=== PATIENT | male | born 1945 | race Caucasian/White ===

== ENCOUNTER 2024-08-25 06:15 | Day surgery (SDC) | payer OTHER, MEDICARE, SELFPAY ==
[2024-08-11 14:11] VITALS: BMI 28.2
--- NOTE | 2024-08-11 15:16 | PTCARENOTE ---
Abnormal EKG on 08/11/24. Dr. Velez aware. No intervention required.
[2024-08-25] VITALS (8 sets, daily range): BP systolic 122–147; BP diastolic 81–94; BMI 28.2
[2024-08-25] MEDS: NORMOSOL-R/PLASMALYTE-A 1000 IV (10:33)
[2024-08-25] MEDS: TYLENOL 1000 MG PO (10:33)
--- NOTE | 2024-08-25 10:54 | HP.FOC2 ---
Focused History & Physical
Chief Complaint
HPI:
Chief Complaint: Supra umbilical incisional hernia
HPI / Indication for Planned Procedure: Patient is a 79-year-old male with a surgical history including RAL low anterior resection with diverting loop ileostomy and subsequently reversal. He also has a more remote history of laparoscopic bilateral
inguinal herniorrhaphy and primary umbilical hernia repair in 2012. He recently began to notice a protrusion just above and to the right of the umbilical region. It has been slowly increasing in size and he now has more awareness of the hernia
being present. Outpatient surgical evaluation confirmed the presence of a soft reducible hernia just above into the right of the umbilicus. He presents today for scheduled operative correction.
Relevant Past Medical History: Other (Colorectal cancer, history of polio, GERD, history of Janice Magdaleno syndrome, pulmonary embolism history, GERD, osteoarthritis, P A-fib, right bundle branch block, hypertension)
Relevant Social History: Negative
Relevant Family History: Negative
Relevant Past Surgical History: Positive for (Bilateral knees, takedown loop ileostomy, RAL LAR, lap bilateral inguinal herniorrhaphy, open umbilical hernia repair)
Review of Systems
Review of Pertinent Systems: All Systems Negative
Medication
See Medication form for detailed medications: Yes
Medication List (including Herbals & OTC):
doxycycline hyclate 100 mg capsule 100 mg PO PRN PRN rosacea 11/22/19
propranolol 60 mg capsule,24 hr,extended release 60 mg PO QPM 11/09/22
apixaban 5 mg tablet (Eliquis) 5 mg PO BID 08/18/24
betamethasone dipropionate 0.05 % topical cream 1 applic topical DAILY PRN eczema 08/18/24
efhdnwea-je-fknug 300 mcg-K 60 mcg-lycop 600 mcg-lutein 300 mcg tablet (Centrum [place] Men) 1 tab PO DAILY 08/18/24
omeprazole 40 mg capsule,delayed release 40 mg PO DAILY 08/18/24
Medications Reviewed: Yes
Allergies and Reactions
Patient has Allergies: Yes
Noted Allergies and Reactions:
Allergy/AdvReac Type Severity Reaction Status Date / Time
monosodium glutamate Allergy SEVERE Verified 08/25/24 10:24
HEADACHE
Penicillins Allergy Pharmacy Verified 08/25/24 10:24
to Review
Pertinent Physical Exam
All Other Systems: Negative
Head/Neck: Normal
Lungs: Normal
Heart: Normal
Abdomen: Other (Periumbilical incisional hernia)
Diagnosis / Assessment
Assessment: 79-year-old male with incisional hernia in umbilical region presenting today for scheduled operative correction.
Plan / Procedure
Open incisional hernia pair with mesh
Anesthesia/Sedation to be done by Anesthesia Provider: Yes
--- NOTE | 2024-08-25 11:08 | W.SUR.PREOP ---
Pre-Operative Surgical Note
-
I have examined this patient prior to the performance of the scheduled procedure.
The patient's condition is unchanged from the time of the current History and
Physical and the patient is able to undergo the scheduled procedure.
--- NOTE | 2024-08-25 12:25 | W.IMMPOSTOP ---
Addendum entered and electronically signed by Mina Agrawal MD 08/25/24 12:33:
#[id number]
Original Note:
Surgical Immed Post Op Note
-
Primary Surgeon: Mina Agrawal MD
Assisting Surgeon: Heber JAIN
Pre-op Diagnosis: Incisional Hernia
Post-op Diagnosis: Incisional Hernia, 2cm
Procedure Performed: Open incisional hernia repair with mesh; ventralex ST 6.4cm round
Anesthesia Type: MAC + 1%lido w/ and 0.25% Marcaine
Specimen / Cultures: none
Estimated Blood Loss: 6mL
Complications: none immediate
Operative Findings: Incisional hernia containing preperitoneal fat and herniated peritoneum. Fascial defect 2 cm. Underlay preperitoneal mesh repair; Ventralex ST 6.4 cm round. Superior and inferior strap secured with transfascial 0 PDS. Fascial
defect closed with 0 PDS.
== END 2024-08-25 13:36 | disposition home or self-care (01) ==
LOC: SDS 06:15
PROVIDERS: ATTENDING PHYSICIAN Surgery; FAMILY PHYSICIAN Family Medicine
DX: K43.2 Incisional hernia without obstruction or gangrene (principal)
CPT/HCPCS: 49593; 36415; 93005; C1781

== ENCOUNTER → 2024-09-11 07:48 | Outpatient (REF) | payer MEDICARE, OTHER, SELFPAY | LOC: HWRAD 07:48 | PROVIDERS: ATTENDING PHYSICIAN Family Medicine | DX: N17.0 Acute kidney failure with tubular necrosis (principal) | CPT/HCPCS: 76770 ==